=== PATIENT | male | born 1950 | race Caucasian/White ===

== ENCOUNTER → 2023-05-08 09:59 | Outpatient (REF) | payer MEDICARE, OTHER, SELFPAY ==
[2023-05-08 13:21] LABS: HDL Cholesterol 90 mg/dl; LDL Cholesterol, Calculated 93 mg/dl; Total Cholesterol 202 mg/dl (50-199); Triglyceride 95 mg/dl (10-149); Very Low Density Lipoprotein 19 mg/dl (0-30)
== END ==
LOC: REG 09:59
PROVIDERS: ATTENDING PHYSICIAN Family Medicine
DX: E78.2 Mixed hyperlipidemia (principal); R73.01 Impaired fasting glucose
CPT/HCPCS: 36415; 80061; 83036

== ENCOUNTER → 2023-12-15 10:19 | Outpatient (REF) | payer MEDICARE, OTHER, SELFPAY ==
[2023-12-15 11:02] LABS: % Basophils 0.2 % (0-2); % Eosinophils 1.2 % (0-6); % Immature Granulocytes 0.7 % (0-0.5); % Lymphocytes 24.3 % (20.5-51.1); % Monocytes 11.2 % (1.7-9.3); % Neutrophils 62.4 % (42.2-75.2); Absolute Eosinophils 0.1 10^3/uL (0-0.7); Absolute Monocytes 0.5 10^3/uL (0.1-0.6); Absolute Neutrophils 2.6 10^3/uL (1.4-6.5); Hematocrit 35.7 % (39.0-52.0); Hemoglobin 12.5 g/dL (13.0-18.0); Mean Corpuscular Hgb 36.8 pg (27.0-31.0); Nucleated Red Blood Cells % 0 % (-); Platelet Count 233 10^3/uL (130-400); Red Cell Dist. Width 13.2 % (11.5-14.5); White Blood Cell Count 4.1 10^3/uL (4.8-10.8)
[2023-12-15 11:54] LABS: HDL Cholesterol 85 mg/dl; LDL Cholesterol, Calculated 119 mg/dl; Total Cholesterol 225 mg/dl (50-199); Triglyceride 105 mg/dl (10-149); Very Low Density Lipoprotein 21 mg/dl (0-30)
[2023-12-15 12:57] LABS: Folate > 20.0 ng/ml (2.76-20); Vitamin B12 712 pg/ml (239-931)
== END ==
LOC: REG 10:19
PROVIDERS: ATTENDING PHYSICIAN Family Medicine
DX: E53.8 Deficiency of other specified B group vitamins (principal); D64.9 Anemia, unspecified; E78.2 Mixed hyperlipidemia
CPT/HCPCS: 36415; 80061; 82607; 82746; 85025

== ENCOUNTER 2024-06-11 04:07 | Emergency (ER) | payer MEDICARE, OTHER, SELFPAY ==
[2024-06-11 04:07] VITALS: BMI 27.2
[2024-06-11 04:19] VITALS: BP 158/90
[2024-06-11 04:57] VITALS: BP 134/76
[2024-06-11 05:00] VITALS: BP 149/99
[2024-06-11] MEDS: LIDOCAINE URO-JET 2% 1 SYRINGE TOPICAL (05:17)
--- NOTE | 2024-06-11 05:40 | ED.GENMED ---
History of Present Illness
General
Chief Complaint: Male Genito-Urinary Symptoms
Source: patient and spouse
Exam Limitations: none
Time Seen by Provider: 06/11/24 05:15
Nursing documentation reviewed up to this point in time: agreed with
History of Present Illness
History of Present Illness:
This is a 73-year-old gentleman with history of stage IV prostate cancer status post prostatectomy 2017 as well as XRT. Maintained on Lupron as well as other testosterone blocking agents. He has history of radiation cystitis and prior history of
urinary retention but has not required Dong catheter placement. Follows with Dr. Daniel Stanford as well as Arnoldo Brown.
He complains of tremendous urge to urinate and inability to do so since midnight. He has had similar sporadic episodes in the past and occasionally passes some blood clots but then generally urinary retention resolves.
Symptoms occasionally worsened when patient holds his urine and occasionally worsened when he drinks alcohol and he does admit to alcoholic beverage yesterday.
He denies fever nor chills, no diarrhea or constipation, no flank pain. He has not passed any bloody urine or clots recently.
Past History
Past History
ED Past Medical History: Cancer (Prostate cancer)
ED Past Surgical History: Urological (Prostatectomy 2017) and Other ( breast surgery x 2.)
Social History
Tobacco: Non-smoker
Alcohol: Occasional
Personal:
Living: with family
Employment: Retired
Family History
Family History: Other (Noncontributory)
Phy Exam
Physical Exam
Physical Exam:
GENERAL: 73-year-old gentleman appears his stated age, bright alert, pleasant, appears in no acute distress. is accompanying.
EYE: anicteric
NECK: Supple, nontender, no meningismus, no significant adenopathy.
ENT: oral mucosa is moist. No rhinorrhea.
CARDIAC: Regular rate and rhythm. no murmur.
LUNGS: Clear breath sounds bilaterally, no acute respiratory distress, no wheezes/rales/rhonchi
ABDOMEN: Soft, nondistended, moderate tenderness over palpably distended bladder, no r/g, no cvat. normoactive BS.
NEUROLOGICAL: Alert and oriented x3, no focal neuro deficits. Gait is steady.
SKIN: Warm and dry, normal color, skin intact. No rash.
MUSCULOSKELETAL: No C/C/E. peripheral pulses are full and equal b/l. No palpable tenderness.
PSYCH: Normal and appropriate interaction.
Sepsis
Sepsis Screening
Sepsis Assessment: Sepsis Ruled Out
Sepsis Screen
Sepsis Screen: Sepsis Ruled Out
Date: 06/11/24
Time: 06:41
Course
Orders/Labs/Results
Orders:
Orders
06/11/24 05:05
Bladder Scan- Treatment ONCE
06/11/24 05:13
Lidocaine 2% [Lidocaine Uro-Jet 2%] 1 syringe .ROUTE .[facility]
06/11/24 05:15
Dong Placement- Treatment ONCE
Reason for insertion: Acute Retention
06/11/24 05:16
Lidocaine 2% [Lidocaine Uro-Jet 2%] 1 syringe TOPICAL NOW STA
06/11/24 05:34
Urinalysis Reflex To Culture Urgent
Date Specimen was Collected: 06/11/24
Time Specimen was Collected: 05:33
Urine Microscopic Reflex Cult Urgent
Urine Culture Urgent
KATE Source: U
Specimen Description:
Date Specimen was Collected: 06/11/24
Time Specimen was Collected: 05:33
06/11/24 06:29
Doxycycline [Vibramycin] 100 mg PO NOW STA
Abnormal Lab Results
06/11/24
05:34
Ur Occult Blood Reflex 4+ A
(Negative)
Leukocyte Esterase Rfl 2+ A
(Negative)
Urine RBC >100 A /HPF
(0-2)
Urine Albumin (Reflex) 4+ A
(Neg - Trace)
Vital Signs
Initial and Last Documented VS:
Initial Vital Signs
Temp Pulse Resp BP Pulse Ox
98.2 F 84 26 158/90 100
06/11/24 04:19 06/11/24 04:19 06/11/24 04:19 06/11/24 04:19 06/11/24 04:19
Last Documented Vital Signs
Temp Pulse Resp BP Pulse Ox
98.2 F 84 26 149/99 98
06/11/24 04:19 06/11/24 04:19 06/11/24 04:19 06/11/24 05:00 06/11/24 06:00
MDM/Problems Addressed
Differential Diagnosis Includes:
Patient presents with acute urinary retention, palpably distended bladder.
History of prostate cancer, radiation cystitis, previous UTIs.
Will check bladder scan, plan for Dong catheter will check urinalysis.
He is afebrile, no complaints of flank pain, nothing to suggest upper tract UTI and no prior history of kidney stones.
Chronic conditions affecting care: Cancer (Prostate cancer)
*Pulse Oximetry
Patient hypoxic: no
*Critical Care Note
Total Time (30-74mins, 75-104mins- exclusive of procedures): Not Applicable
Update Note
Update Note:
05:30
Bladder scan revealed 650 cc in the bladder.
Dong catheter inserted by nursing staff without difficulty, draining slightly cloudy very dark bloody urine.
Patient has had complete relief of suprapubic discomfort. Resting comfortably.
Urinalysis is pending.
06:30
Dong draining scantly blood-tinged urine. No evidence of clots.
Patient remains comfortable, abdomen is soft without appreciable tenderness.
Urinalysis shows many RBCs, leukocyte esterase positive. Microscopic is a limited due to obscured by RBCs.
As leukocyte Estrace positive concern for UTI thus will treat with 1 week course of doxycycline.
Urine culture is pending.
Will remove Dong catheter. Discussed importance of staying well-hydrated on a daily basis, avoid at regular intervals. Avoid alcoholic beverages.
Prompt follow-up with urology for recheck.
Return precautions discussed.
ED Attending Note
-
Portions of this chart may have been created with voice recognition software.� Occasional wrong word or��sound alike� substitutions may have occurred due to the inherent limitations of voice recognition software.
Discharge Plan
Departure
Patient Disposition: Home (Routine Discharge)
Date of Disposition: 06/11/24
Time of Disposition: 06:35
Patient with high blood pressure during this ER visit?: No
Condition: Good
Discharge Problem:
Acute urinary retention, Acute cystitis with hematuria, Irradiation cystitis with hematuria
Instructions: Blood in the Urine (Hematuria), Adult (DC), Urinary tract infection in adults - ED discharge instructions
Prescriptions:
New
doxycycline monohydrate 100 mg capsule
100 mg PO BID Qty: 14 1RF
Referrals:
Cody Parks DO [Family Provider] -
Daniel Stanford Jr., MD [Active] - Call in 1-3 days for appt
Interventions
Interventions:
*Risk Screen - Suicide Last Done: 06/11/24 04:19
*General Assessment Last Done: 06/11/24 04:58
*Neglect/Abuse Screening Last Done: 06/11/24 04:19
*ED- Fall Risk Assessment Last Done: 06/11/24 04:58
*ED COVID-19 Vaccine History Last Done: 06/11/24 04:58
ED-Male Genitourinary Assessment Last Done: 06/11/24 04:59
Discharge Date and Time
Print Language: UPPER SORBIAN
[2024-06-11 05:58] LABS: Urine Albumin 4+ (Neg - Trace); Urine Bilirubin Negative (Negative); Urine Character Slightly Cloudy (Clear); Urine Color Amber; Urine Glucose Negative (Negative); Urine Ketone Negative (Negative); Urine Leukocyte 2+ (Negative); Urine Nitrite Negative (Negative); Urine Occult Blood 4+ (Negative); Urine Urobilinogen Negative (Neg - 1+)
[2024-06-11 06:15] LABS: Urine Red Blood Cell >100 /HPF (0-2)
[2024-06-11 07:00] VITALS: BP 133/83
[2024-06-11] MEDS: VIBRAMYCIN 100 MG PO (07:06)
== END 2024-06-11 07:13 | disposition home or self-care (01) ==
LOC: EMR 04:07
PROVIDERS: EMERGENCY PHYSICIAN Emergency Medicine; FAMILY PHYSICIAN Family Medicine
DX: R33.9 Retention of urine, unspecified (principal); N30.41 Irradiation cystitis with hematuria; Y84.2 Radiological procedure and radiotherapy as the cause of abnormal reaction of the patient, or of later complication, without mention of misadventure at the time of the procedure; Z85.46 Personal history of malignant neoplasm of prostate; Z86.16 Personal history of COVID-19; Z87.440 Personal history of urinary (tract) infections; Z90.79 Acquired absence of other genital organ(s); Z79.899 Other long term (current) drug therapy; Z91.018 Allergy to other foods
CPT/HCPCS: 99283; 51701; 51798; 81003; 81015; 87086

== ENCOUNTER 2024-06-11 09:26 | Emergency (ER) | payer MEDICARE, OTHER, SELFPAY ==
[2024-06-11 09:27] VITALS: BP 155/96
[2024-06-11 09:35] VITALS: BP 157/99
[2024-06-11 09:38] VITALS: BP 157/99
[2024-06-11 09:42] VITALS: BMI 27.0
--- NOTE | 2024-06-11 09:58 | ED.GENMED ---
History of Present Illness
General
Chief Complaint: Urinary Symptoms
Source: patient and records
Exam Limitations: none
Time Seen by Provider: 06/11/24 09:43
History of Present Illness
History of Present Illness:
73yoM with a history of prostate cancer s/p prostatectomy and radiation in 2017 currently on Lupron and other testosterone blocking agents presenting for evaluation of urinary retention. Patient has a history of radiation cystitis and will have
intermittent issues with urinary retention if he has a small clot that is blocking the urine stream. He typically crease his fluid intake and is able to urinate. He was seen in the ED overnight for urinary retention. A Dong catheter was
initially placed but was removed prior to discharge. He was started on a course of doxycycline for UTI. Patient has been unable to urinate since being discharged so came back to the ED. He denies any fevers, chills, vomiting, flank pain. He does
not take any blood thinners.
Past History
Past History
ED Past Medical History: Cancer (Prostate cancer)
ED Past Surgical History: Urological (Prostatectomy 2017) and Other ( breast surgery x 2.)
Social History
Tobacco: Non-smoker
Alcohol: Occasional
Personal:
Living: with family
Employment: Retired
Family History
Family History: Other (Noncontributory)
Phy Exam
General Physical Exam
General Presentation: well appearing and no apparent distress
General age: appears stated age
General Skin: warm and dry
General Habitus: normal
General Mental: alert
ENT Exam
ENT Exam: normocephalic
Pulmonary Exam
Pulmonary Exam: no respiratory distress
Gastrointestinal Exam
Gastrointestinal Exam: non tender, soft, non distended and other (Patient examined after catheter placement)
Genitourinary Exam Male
Exam Male: other (Dong catheter in place draining light red urine with tiny clots )
Neurological Exam
Neurological Exam: alert
[place] Coma Scale
Eye Opening: Spontaneous
Verbal Response: Oriented
Motor Response: Obeys Commands
GCS Total Score: 15
Skin Exam
Skin Exam: normal color and warm/dry
Psychiatric Exam
Psychiatric Exam: normal mood/affect
Course
Orders/Labs/Results
Orders:
Orders
06/11/24 09:33
Bladder Scan- Treatment ONCE
06/11/24 09:43
Dong Placement- Treatment ONCE
Reason for insertion: Acute Retention
Catheter- Indwelling As Directed
Reason for insertion: Acute Retention
Size: 16 Kiswahili
Discontinue Date/Time: 06/14/24 0600
06/11/24 10:01
Catheter-Hand Irrigation As Directed
Solution:: Sterile 0.9% NaCl
Amount: 50cc
Frequency: ONCE
Reason for hand irrigation: hematuria
Irrigate via:: Catheter directly
If unable to irrigate using port above, may use:: Catheter directly
Vital Signs
Initial and Last Documented VS:
Initial Vital Signs
Temp Pulse Resp BP Pulse Ox
97.6 F 99 17 155/96 99
06/11/24 09:27 06/11/24 09:27 06/11/24 09:27 06/11/24 09:27 06/11/24 09:27
Last Documented Vital Signs
Temp Pulse Resp BP Pulse Ox
98.6 F 64 14 134/84 97
06/11/24 09:38 06/11/24 11:30 06/11/24 11:30 06/11/24 11:00 06/11/24 11:30
MDM/Problems Addressed
Differential Diagnosis Includes:
73yoM here with acute urinary retention. Hx of prostate cancer and radiation cystitis. Seen in ED last night for the same. Had a catheter placed which was removed prior to d/c. Returning again with retention. Bladder scan 550cc on arrival and
nursing staff placed Dong catheter prior to initial exam. Catheter is draining light red urine on initial exam. Catheter was irrigated and urine now appears to be a pink color and catheter is draining well. Will discharge with catheter in place. He
was advised to continue the doxycycline that was prescribed earlier today and f/u with urology for catheter removal. ED return precautions reviewed including fevers. Patient discharged in stable condition.
*Critical Care Note
Total Time (30-74mins, 75-104mins- exclusive of procedures): Not Applicable
ED Attending Note
-
Portions of this chart may have been created with voice recognition software.� Occasional wrong word or��sound alike� substitutions may have occurred due to the inherent limitations of voice recognition software.
Discharge Plan
Departure
Patient Disposition: Home (Routine Discharge)
Date of Disposition: 06/11/24
Time of Disposition: 10:32
Patient with high blood pressure during this ER visit?: Yes
Discharge Problem:
Acute urinary retention, Hematuria
Instructions: How to Care for Your Dong Catheter, Male, Urinary retention - Discharge instructions
Prescriptions:
No Action
doxycycline monohydrate 100 mg capsule
100 mg PO BID Qty: 14 1RF
Referrals:
Cody Parks DO [Family Provider] -
Daniel Stanford Jr., MD [Active] -
Activity Restrictions/Additional Instructions:
Continue taking antibiotics and stay hydrated.
Please follow-up with your urologist for catheter removal. Return to the ER with any worsening symptoms, fevers, or if your catheter stops draining.
Interventions
Interventions:
*Risk Screen - Suicide Last Done: 06/11/24 09:29
*General Assessment Last Done: 06/11/24 09:29
*Neglect/Abuse Screening Last Done: 06/11/24 09:29
*ED- Fall Risk Assessment Last Done: 06/11/24 09:38
*ED COVID-19 Vaccine History Last Done: 06/11/24 09:29
*Nursing Disposition Last Done: 06/11/24 11:53
ED-Male Genitourinary Assessment Last Done: 06/11/24 09:38
Discharge Date and Time
Discharge Date/Time: 06/11/24 11:55
Print Language: KISWAHILI
[2024-06-11 10:00] VITALS: BP 135/99
[2024-06-11 11:00] VITALS: BP 134/84
== END 2024-06-11 11:55 | disposition home or self-care (01) ==
LOC: EMR 09:26
PROVIDERS: EMERGENCY PHYSICIAN Emergency Medicine; FAMILY PHYSICIAN Family Medicine
DX: R33.9 Retention of urine, unspecified (principal); R31.9 Hematuria, unspecified; R03.0 Elevated blood-pressure reading, without diagnosis of hypertension; Z85.46 Personal history of malignant neoplasm of prostate; Z92.3 Personal history of irradiation; Z90.79 Acquired absence of other genital organ(s); Z79.899 Other long term (current) drug therapy; Z91.018 Allergy to other foods
CPT/HCPCS: 99284; 51798; 51702

== ENCOUNTER 2024-06-12 08:46 | Inpatient (IN) | payer MEDICARE, OTHER, SELFPAY ==
[2024-06-12] VITALS (13 sets, daily range): BP systolic 80–147; BP diastolic 48–105; BMI 26.8; BMI 28.3
--- NOTE | 2024-06-12 04:38 | ED.GENMED ---
History of Present Illness
General
Chief Complaint: Catheter/Tube Problem
Source: patient
Time Seen by Provider: 06/12/24 03:40
Nursing documentation reviewed up to this point in time: agreed with
History of Present Illness
History of Present Illness:
Pleasant 73-year-old male presents to the emergency department with a clogged Dong catheter. Patient was here yesterday for urinary retention. He received an indwelling catheter. He reports that tonight it has not been draining appropriately.
Denies fever, chills, nausea or vomiting. Upon arrival to the emergency department he was brought back to a room. There is there that it was determined that he was in retention. Nursing also discovered that at [facility] Dong had been placed
inpatient. This Dong catheter was changed, expelling several clots. Urine is flowing more freely at this point. Patient has been to the emergency department for this in the past. He states that his hematuria self resolved.
Past History
Past History
ED Past Medical History: Cancer (Prostate cancer)
ED Past Surgical History: Urological (Prostatectomy 2017) and Other ( breast surgery x 2.)
Social History
Tobacco: Non-smoker
Alcohol: Occasional
Personal:
Living: with family
Employment: Retired
Family History
Family History: Other (Noncontributory)
Review of Systems
Review of Systems
Allergies reviewed?: Yes
All Other Systems: ROS reviewed and negative except as documented in HPI and ROS
Constitutional: Reports no symptoms
EENT: Reports no symptoms
Respiratory: Reports no symptoms
Cardiac: Reports no symptoms
ABD/GI: Reports no symptoms
: Reports difficulty voiding and bleeding
Musculoskeletal: Reports no symptoms
Skin: Reports no symptoms
Neurological: Reports no symptoms
Endocrine: Reports no symptoms
Hematologic/Lymphatic: Reports no symptoms
Psychiatric: Reports anxiety
Phy Exam
General Physical Exam
General Presentation: well appearing and mild distress
General age: appears stated age
General Skin: warm and dry
General Habitus: normal
General Mental: alert
General Hydration: appears well hydrated
Cardiovascular Exam
Cardiovascular Exam: regular rate/rhythm and no edema
Pulmonary Exam
Pulmonary Exam: lungs clear and no respiratory distress
Gastrointestinal Exam
Gastrointestinal Exam: normal bowel sounds, non tender and soft
Genitourinary Exam Male
Exam Male: other (Indwelling Dong catheter)
Neurological Exam
Neurological Exam: alert and oriented x3
Musculoskeletal Exam
Musculoskeletal Exam: full ROM and neck pain
Skin Exam
Skin Exam: normal color and warm/dry
Psychiatric Exam
Psychiatric Exam: normal mood/affect and anxious
Course
Orders/Labs/Results
Orders:
Orders
06/12/24 03:58
Lidocaine/Epinephrine/Tetracai [Let Topical Anesthetic Gel] 3 ml .ROUTE .[facility] ONE
06/12/24 04:20
Catheter [Dong Placement- Treatment] ONCE
Reason for insertion: Acute Retention
06/12/24 06:03
BMP [Basic Metabolic Panel] Urgent
CBC/With Diff [Complete Blood Count/With Diff] Urgent
PT/INR [Prothrombin Time] Urgent
PTT Urgent
Vital Signs
Initial and Last Documented VS:
Initial Vital Signs
Temp Pulse Resp BP Pulse Ox
98.5 F 70 18 124/85 98
06/12/24 03:33 06/12/24 03:33 06/12/24 03:33 06/12/24 03:33 06/12/24 03:33
Last Documented Vital Signs
Temp Pulse Resp BP Pulse Ox
98.3 F 68 18 147/87 96
06/12/24 04:14 06/12/24 05:30 06/12/24 03:33 06/12/24 05:00 06/12/24 05:30
*Critical Care Note
Total Time (30-74mins, 75-104mins- exclusive of procedures): Not Applicable
Update Note
Update Note:
Spoke with Dr. Stanford, who will come in to put off CBI three-way catheter in. He requests patient be admitted to hospitalist service.
ED Attending Note
-
Portions of this chart may have been created with voice recognition software.� Occasional wrong word or��sound alike� substitutions may have occurred due to the inherent limitations of voice recognition software.
Discharge Plan
Departure
Patient Disposition: Admit
Date of Disposition: 06/12/24
Time of Disposition: 06:07
Presentation/result/management discussed w/ accepting MD/DO: Hospitalist
Condition: Good
Discharge Problem:
Hematuria, Acute on chronic urinary retention
Prescriptions:
No Action
doxycycline monohydrate 100 mg capsule
100 mg PO BID Qty: 14 1RF
Referrals:
UNKNOWN - PT DOES,NOT KNOW [Family Provider] -
Interventions
Interventions:
*Risk Screen - Suicide Last Done: 06/12/24 03:33
*General Assessment Last Done: 06/12/24 03:33
*Neglect/Abuse Screening Last Done: 06/12/24 03:33
*ED- Fall Risk Assessment Last Done: 06/12/24 03:33
*ED COVID-19 Vaccine History Last Done: 06/12/24 03:33
HQ-Bhgmaj-Vxosqzbjuh Assessment Last Done: 06/12/24 04:15
ED-Male Genitourinary Assessment Last Done: 06/12/24 04:15
Discharge Date and Time
Print Language: SPANISH
[2024-06-12 06:35] LABS: % Basophils 0.2 % (0-2); % Immature Granulocytes 0.4 % (0-0.5); % Lymphocytes 14.5 % (20.5-51.1); % Monocytes 7.1 % (1.7-9.3); % Neutrophils 76.8 % (42.2-75.2); Absolute Eosinophils 0.1 10^3/uL (0-0.7); Absolute Lymphocytes 0.7 10^3/uL (1.2-3.4); Absolute Monocytes 0.4 10^3/uL (0.1-0.6); Absolute Neutrophils 3.8 10^3/uL (1.4-6.5); Hematocrit 33.2 % (39.0-52.0); Hemoglobin 11.5 g/dL (13.0-18.0); Mean Corp Hgb Conc. 34.6 g/dL (33.0-37.0); Mean Corpuscular Hgb 35.9 pg (27.0-31.0); Mean Corpuscular Volume 103.8 fL (80.0-94.0); Nucleated Red Blood Cells % 0 % (-); Platelet Count 217 10^3/uL (130-400); Red Cell Dist. Width 13.4 % (11.5-14.5)
--- NOTE | 2024-06-12 06:38 | HPS.HSE ---
Family Physician
-
Family Physician: NOT KNOW UNKNOWN - PT DOES
Chief Complaint
-
Hematuria / Trouble Urinating
History of Present Illness
Patient is a 73y F with PMH significant for prostate cancer s/p prostatectomy and XRT who presents to ED complaining of hematuria and difficulty urinating. Patient states that he initially noted some bloody urine Monday evening. He presented to
the ED early in the AM on Monday. He was evaluated and had a Dong placed at that time. He was treated for suspected UTI and the Dong was removed prior to discharge. Patient returned to the ED several hours later - having been unable to urinate
since his discharge. A Dong was again placed in the ED and patient was discharged to home.
He notes that the urine stopped draining urine and he developed some lower abdominal discomfort.
He returned to the ED this evening again for evaluation.
Patient is noted to have grossly bloody urine with some clots. Dong again exchanged and patient to be started on CBI.
He is not on any ASA, NSAIDs, OAC, etc.
Patient denies any fevers / chills, N/V/D, etc.
Patient states that he did a lot of yard work / exertion on Monday and was not very good about hydration and wonders if this may have triggered his symptoms.
Medical History
Past Medical History
Past Medical History: Reports Other
Additional Past Medical History:
BRCA 2 Positive
Prostate Cancer s/p Surgery, XRT, Hormonal Medications
Breast Cancer s/p Lumpectomy, Chemo
Osteoporosis
Radiation Cystitis
Past Surgical History: Reports Other
Additional Past Surgical History:
Prostatectomy
Left Lumpectomy (x 2)
Social History
Tobacco: Former Smoker (Quit smoking 50 years ago.)
Alcohol: Daily (1-2 drinks daily.)
Drug: None
Family History
Family History: Other (Father: Prostate cancer)
Allergies / Home Medications
Allergies reflects when Allergies were last updated in [employer]
Home Medications with original date entered in [employer]
Allergy/Medication List:
Allergies
Allergy/AdvReac Type Severity Reaction Status Date / Time
shrimp Allergy Hives Verified 06/12/24 03:32
Home Medications
doxycycline monohydrate 100 mg capsule 100 mg PO BID #14 caps 06/11/24
abiraterone 250 mg tablet (Zytiga) 1,000 mg PO DAILY 06/12/24
anastrozole 1 mg tablet 1 mg PO DAILY 06/12/24
calcium 500 mg (as citrate)-vit D3 12.5 mcg (500 unit) chewable tablet 1 tab PO QID 06/12/24
carboxymethylcellulose sodium 1 % eye liquid gel drops 1 drp ophthalmic (eye) TID 06/12/24
denosumab 60 mg/mL subcutaneous syringe (Prolia) 60 mg SC [id number] 06/12/24
leuprolide acetate (6 month) 45 mg intramuscular syringe kit (Lupron Depot) 45 mg IM [id number] 06/12/24
olaparib 150 mg tablet (Lynparza) 300 mg PO BID 06/12/24
prednisone 5 mg tablet 5 mg PO BID 06/12/24
psyllium husk 3.4 gram/5.4 gram oral powder (Metamucil) 1 tbsp PO DAILY 06/12/24
Review of Systems
-
History Source: Patient
A 12 point ROS was completed and negative except as noted: Yes
Constitutional: Denies Fever or Chills
Respiratory: Denies Cough or Trouble Breathing
Cardiac: Denies Chest Pain or Palpitations
Abdomen/GI: Denies Abdominal Pain, Nausea, Vomiting or Diarrhea
: Reports Difficulty Voiding and Bleeding; Denies Dysuria
Musculoskeletal: Denies Joint Pain or Edema
Neurological: Denies Dizzy or Headache
Psych: Denies Depression or Anxiety
Physical Exam
Vital Signs
Vital Signs
Temp Pulse Resp BP Pulse Ox
98.3 F 68 18 147/87 96
06/12/24 04:14 06/12/24 05:30 06/12/24 03:33 06/12/24 05:00 06/12/24 05:30
Physical Exam
General: Other (73y M in no acute distress.)
HEENT: Moist mucous membranes
Respiratory: Clear; No Wheezes, Rales or Rhonchi
Cardiac: S1/S2 and Regular Rhythm; No Murmur
GI: Soft, Non Tender, Non Distended and Normal Bowel Sounds
Genito-urinary: Other (Dong in place draining red urine with occasional clots.)
Musculoskeletal: No Clubbing, No Cyanosis and No Edema
Neuro: AO x 3
Laboratory Results
-
06/12/24 06:17
Impression/Plan
-
A/P: Patient is a 73y M with PMH significant for prostate cancer and radiation cystitis who presents to ED complaining of gross hematuria and difficulty voiding - despite Dong placement.
Gross Hematuria
Acute Urinary Retention secondary to the above
Radiation Cystitis
- Admit for further evaluation and treatment.
- Dong to be exchanged for 3-way and CBI initiated.
- Urology consulted for further evaluation / recommendations.
- Continue with abx for now pending culture data.
- Patient not on any antiplatelets, OAC - but has known h/o radiation cystitis.
- Follow for improvement in hematuria.
- Follow initial labs and subsequent H&H - transfuse if needed.
Breast Cancer
BRCA2 Positivity
- Stable. Continue current hormonal / oral chemo regimen.
- Continue usual prednisone dosing.
Constipation
- Bowel regimen.
DVT Prophylaxis: SCDs
Code Status: Full
[2024-06-12] MEDS: VALIUM INJECTION 2.5 MG IV (06:42)
[2024-06-12 06:48] LABS: Blood Urea Nitrogen 18 mg/dl (9-20); Calcium 9.8 mg/dl (8.4-10.2); Carbon Dioxide 27 mmol/L (22-30); Chloride 104 mmol/L (98-107); Estimated Creatinine Clearance 87 ml/min; Glucose 120 mg/dl (70-99); INR 0.96; Potassium 4.1 mmol/L (3.5-5.1); Sodium 139 mmol/L (135-145); eGFR > 60.00
[2024-06-12 06:49] LABS: APTT 26.4 Sec (23.4-35.0)
--- NOTE | 2024-06-12 08:43 | CON.MD ---
Consultation - Medical
-
see dictated note
pt with hx of prostate ca- s/p robotic prostatectomy/xrt around 2018- now met on androgen ablation
followed at [facility]
says last psa low
has on occ had hematuria
now 3rd ER visit with clot retention
[address] [place]on placed- irrigated with 1 liter of saline- returned moderate amount of old clot- cbi started- clear on moderate drip
plan
continue de leon and cbi
antibx- await ucx
npo after midnight for cysto in OR if needed
begin flomax
--- NOTE | 2024-06-12 09:35 | W.PN.HOSP.TC ---
Today's Communication/Plan
-
CBI.
Follow hemoglobin.
Empiric antibiotics
Assessment / Plan
Assessment / Plan
Impression:
A/P: Patient is a 73y M with PMH significant for prostate cancer and radiation cystitis who presents to ED complaining of gross hematuria and difficulty voiding - despite Dong placement.
Gross hematuria with acute urinary retention
Suspected radiation cystitis
Constipation
Other conditions:
Prostate carcinoma on hormonal therapy.
Breast carcinoma.
BRCA2 positivity
Plan:
Gross Hematuria
Acute Urinary Retention secondary to the above
Radiation Cystitis
Dong catheter in place with CBI initiated.
Patient reports no fever prior to presentation.
Urine culture from 06/11 with no growth.
Continue empiric antibiotics/ceftriaxone.
Urology input appreciated with plan for cystoscopy tentatively on 06/11. Will keep n.p.o. postmidnight.
Patient is not on any antiplatelets, oral anticoagulants prior to presentation. Although has a prior history of radiation cystitis
Follow hemoglobin
Breast Cancer
BRCA2 Positivity
- Stable. Continue current hormonal / oral chemo regimen.
- Continue usual prednisone dosing.
Constipation
- Bowel regimen.
DVT Prophylaxis: SCDs
Code Status: Full
Anticipated Discharge: 24 - 48 hours
Subjective/Interval History
-
Date of Service: June 12, 2024
Objective Data
-
Labs:
Laboratory Results
06/12/24
06:17
WBC 5.0
Hgb 11.5 L
Hct 33.2 L
Plt Count 217
PT 13.0
INR 0.96
APTT 26.4
Sodium 139
Potassium 4.1
Chloride 104
Carbon Dioxide 27
BUN 18
Creatinine 0.9
Glucose 120 H
Calcium 9.8
Vital Signs:
Vital Signs
Temp Pulse Resp BP Pulse Ox
98.3 F 68 18 147/87 96
06/12/24 04:14 06/12/24 05:30 06/12/24 03:33 06/12/24 05:00 06/12/24 05:30
Physical Exam
-
General: Well Developed and No Apparent Distress
HEENT: Normocephalic, Atraumatic and Moist Mucous Membranes
Respiratory: Clear to Auscultation
Cardiac: Regular Rhythm and S1/S2; Negative Murmur, Rub or Gallop
GI: Soft, Nontender, Nondistended and Normal Bowel Sounds; Negative Organomegaly
Rectal: Deferred by Provider
Genito-urinary: Dong
Musculoskeletal: No Clubbing, No Cyanosis and No Edema
Skin: Negative Rash
Neuro: Nonfocal/Grossly Intact
--- NOTE | 2024-06-12 10:05 | CM ---
Met patient , and son in room. Patient admitted with issues related to his de leon catheter. He is very independent, drives. He lives with in 3 level home with 2 steps to enter. Half bath on manager entry. UP 13 steps to full bath and bedroom.
He does not have any DME. No history of VNA or SNF. He hopes to go home and do outpatient follow up.
PLAn for cystoscopy.
Pharmacy: [facility]
PCP Cody Ricci
PLAN: home no needs
[2024-06-12] MEDS: NSS 1000 IV ×2 (10:48→20:29)
[2024-06-12] MEDS: FLOMAX 0.4 MG PO (10:48)
[2024-06-12] MEDS: ROCEPHIN 1000 MG IV (10:48)
[2024-06-12] MEDS: STERILE WATER FOR INJECTION 10 ML IV (10:48)
--- NOTE | 2024-06-12 11:58 | W.PN.UPDATE ---
Update Note
Progress Note Update
pt stable
no clots- urine pink on moderate drip
labs stable/ucx negative
reviewed plan with pt and at bedside
npo after midnight for OR tomorrow
risks, benefits, alternatives reviewed
continue antibx for now
[2024-06-12] MEDS: DELTASONE 5 MG PO ×2 (12:51→19:55)
--- NOTE | 2024-06-12 12:57 | EDRN ---
Lunch provided, prednisone as documented. Urine draining light punch colored.
[2024-06-12] MEDS: NON-FORMULARY ITEM 300 MG PO (13:18)
[2024-06-12] MEDS: REFRESH CELLUVISC GEL OPHTH (17:48)
[2024-06-12] MEDS: NON-FORMULARY ITEM PO (18:24)
[2024-06-12] MEDS: SENOKOT 17.2 MG PO (21:33)
[2024-06-12] MEDS: REFRESH CELLUVISC GEL 1 DROPS OPHTH (21:33)
[2024-06-12] MEDS: NON-FORMULARY ITEM 150 MG PO (23:29)
[2024-06-13] VITALS (10 sets, daily range): BP systolic 104–133; BP diastolic 63–79
--- NOTE | 2024-06-13 03:40 | DOWNTIME ---
There was a [employer] Downtime on 06/13/2024 from 0200 to 06/14/2023 at 0318 . Downtime documentation of patient's care, including medication administrations, has been reconciled in the electronic record per guidelines. Refer to the
patient's paper chart under the miscellaneous tab to see printed paper medication records and downtime forms.
[2024-06-13] MEDS: NON-FORMULARY ITEM 250 MG PO (05:33)
[2024-06-13] MEDS: ARIMIDEX 1 MG PO (05:46)
[2024-06-13] MEDS: NSS 1000 IV ×2 (06:22→16:28)
[2024-06-13 08:50] LABS: Hematocrit 30.3 % (39.0-52.0); Hemoglobin 10.5 g/dL (13.0-18.0); Mean Corp Hgb Conc. 34.7 g/dL (33.0-37.0); Mean Corpuscular Hgb 35.7 pg (27.0-31.0); Mean Corpuscular Volume 103.1 fL (80.0-94.0); Mean Platelet Volume 9.9 fL (7.4-10.4); Platelet Count 197 10^3/uL (130-400); Red Blood Cell Count 2.94 10^6/uL (4.70-6.10); Red Cell Dist. Width 13.3 % (11.5-14.5); White Blood Cell Count 4.4 10^3/uL (4.8-10.8)
[2024-06-13] MEDS: REFRESH CELLUVISC GEL 1 DROPS OPHTH ×3 (08:58→21:37)
[2024-06-13] MEDS: FLOMAX 0.4 MG PO (08:58)
[2024-06-13] MEDS: NON-FORMULARY ITEM PO (08:59)
--- NOTE | 2024-06-13 09:04 | W.PN.URO.CBU ---
Today's Communication / Plan
-
OR
Assessment / Plan
-
gross hematuria
suspected xrt cystitis
for OR today
consent signed after review of risks, benefits, alternatives and disabilities including need for transfusion
Diagnosis
-
Date of Service: June 13, 2024
-
Patient Diagnosis:
hematuria
Subjective
-
pt comfortable
cath hand irrigated for more clot- urine still pink on moderate CBI
hgb down
Objective
-
Vital Signs
Temp Pulse Resp BP Pulse Ox
97.9 F 69 16 133/75 99
06/13/24 07:02 06/13/24 07:02 06/13/24 07:02 06/13/24 07:02 06/13/24 07:02
Intake and Output
06/12/24 06/13/24 06/14/24
06:59 06:59 06:59
Intake Total 1680 / 1680
Output Total 0 / 0
Balance -1970 / -1970
Intake:
Oral fluids 480 / 480
IV fluids (Total) 1200 / 1200
Output:
True Urine Output from CBI 3649 / 3649
Laboratory Results
06/13/24 08:18
Review of Systems
-
Constitutional: Fatigue
Respiratory: No Symptoms
Cardiac: No Symptoms
Abdomen/GI: No Symptoms
Physical Exam
-
General - no acute distress
Abdomen - soft, non-tender
Genitalia - normal- [address]
Skin - warm & dry with no rash
Neuro - AOx3, no motor deficits
Extremities - no clubbing, no cyanosis, no edema
[2024-06-13 10:01] LABS: PSA, Total - Diagnostic 0.08 ng/ml (0.0-4.0)
[2024-06-13] MEDS: ROCEPHIN 1000 MG IV (10:03)
[2024-06-13] MEDS: STERILE WATER FOR INJECTION 10 ML IV (10:04)
[2024-06-13 10:30] LABS: Blood Urea Nitrogen 12 mg/dl (9-20); Calcium 8.2 mg/dl (8.4-10.2); Carbon Dioxide 24 mmol/L (22-30); Chloride 111 mmol/L (98-107); Estimated Creatinine Clearance 98 ml/min; Glucose 105 mg/dl (70-99); Potassium 4.3 mmol/L (3.5-5.1); Sodium 140 mmol/L (135-145); eGFR > 60.00
--- NOTE | 2024-06-13 11:28 | CM ---
CM following re: discharge planning.
Reviewed pt's chart, met with pt.
Per Urologist OR today, continue supportive care.
Pt reports he lives with spouse 2 SH, has supportive family and pt described himself as independent in all areas [employer].
D/C plan: home with anticipated no needs vs VN if indicated.
CM will follow with discharge plan updates as hospitalization progresses.
--- NOTE | 2024-06-13 11:41 | W.PN.HOSP.TC ---
Today's Communication/Plan
-
Remains on CBI
Plan for cystoscopy today.
Monitor hemoglobin.
Urine cultures negative to date.
On empiric ceftriaxone
Assessment / Plan
Assessment / Plan
Impression:
A/P: Patient is a 73y M with PMH significant for prostate cancer and radiation cystitis who presents to ED complaining of gross hematuria and difficulty voiding - despite Dong placement.
Gross hematuria with acute urinary retention
Suspected radiation cystitis
Acute blood loss anemia
Constipation
Other conditions:
Prostate carcinoma on hormonal therapy.
Breast carcinoma.
BRCA2 positivity
Plan:
Gross Hematuria
Acute Urinary Retention secondary to the above
Radiation Cystitis
Dong catheter in place with CBI initiated.
Patient reports no fever prior to presentation.
Urine culture from 06/11 with no growth.
Continue empiric antibiotics/ceftriaxone.
Urology input appreciated with plan for cystoscopy tentatively on 06/11. Will keep n.p.o. postmidnight.
Patient is not on any antiplatelets, oral anticoagulants prior to presentation. Although has a prior history of radiation cystitis
Acute blood loss anemia. Hemoglobin dropped 11.5�10.5. Continue close monitoring.
Breast Cancer
BRCA2 Positivity
- Stable. Continue current hormonal / oral chemo regimen.
- Continue usual prednisone dosing.
Constipation
- Bowel regimen.
DVT Prophylaxis: SCDs
Code Status: Full
Anticipated Discharge: 24 - 48 hours
Subjective/Interval History
-
Date of Service: June 13, 2024
Objective Data
-
Labs:
Laboratory Results
06/13/24
08:18
WBC 4.4 L
Hgb 10.5 L
Hct 30.3 L
Plt Count 197
Sodium 140
Potassium 4.3
Chloride 111 H
Carbon Dioxide 24
BUN 12
Creatinine 0.8
Glucose 105 H
Calcium 8.2 L D
Vital Signs:
Vital Signs
Temp Pulse Resp BP Pulse Ox
97.9 F 69 16 133/75 99
06/13/24 07:02 06/13/24 07:02 06/13/24 07:02 06/13/24 07:02 06/13/24 07:02
I&O
06/12/24 06/13/24 06/14/24
06:59 06:59 06:59
Intake Total 1680 / 1680
Output Total 3650 / 3650
Balance -1969 / -1969
Physical Exam
-
General: Well Developed and No Apparent Distress
HEENT: Normocephalic, Atraumatic and Moist Mucous Membranes
Respiratory: Clear to Auscultation
Cardiac: Regular Rhythm and S1/S2; Negative Murmur, Rub or Gallop
GI: Soft, Nontender, Nondistended and Normal Bowel Sounds; Negative Organomegaly
Rectal: Deferred by Provider
Genito-urinary: Dong
Musculoskeletal: No Clubbing, No Cyanosis and No Edema
Skin: Negative Rash
Neuro: Nonfocal/Grossly Intact
[2024-06-13] MEDS: DELTASONE PO (13:20)
--- NOTE | 2024-06-13 15:17 | W.IMMPOSTOP ---
Surgical Immed Post Op Note
-
Primary Surgeon:
randy
Assisting Surgeon:
Pre-op Diagnosis:
xrt cystitis/clot retention
Post-op Diagnosis:
same
Procedure Performed:
cysto/clot evac/fulguration
Anesthesia Type:
gen
Specimen / Cultures:
none
Estimated Blood Loss:
10cc
Complications:
none
Operative Findings:
mild anastamotic narrowing
clot evacuated
xrt cystitis of trigone and bladder neck- tissue very friable
tissue fulgurated- cath replaced- irrigated clear at end of procedure
to pacu in stable condition
continue CBI today
[2024-06-13] MEDS: METAMUCIL, KONSYL 0.5 PACKET PO (16:27)
--- NOTE | 2024-06-13 16:40 | PTCARENOTE ---
Patient returned to his room from PACU post cystoscopy with evacuation of clots and fulguration.The patient denies any pain.Continuous bladder irrigation is infusing and the urine is totally clear.The patient is alert and oriented.Vital signs are
stable.The patient is in his bed with the call villalpando in reach.
[2024-06-13] MEDS: NON-FORMULARY ITEM 150 MG PO (17:43)
[2024-06-13] MEDS: DELTASONE 5 MG PO (17:43)
[2024-06-13] MEDS: TYLENOL 650 MG PO (17:53)
[2024-06-13] MEDS: SENOKOT 17.2 MG PO (21:37)
[2024-06-14] MEDS: ARIMIDEX 1 MG PO (06:05)
[2024-06-14] MEDS: NON-FORMULARY ITEM 1000 MG PO (06:05)
--- NOTE | 2024-06-14 08:02 | W.PN.UPDATE ---
Update Note
Progress Note Update
pt stable overnight
urine clear on cbi
de leon removed
check labs
ambulated/TOV
will check later this afternoon
[2024-06-14 08:10] LABS: Hematocrit 28.9 % (39.0-52.0); Hemoglobin 10.2 g/dL (13.0-18.0); Mean Corp Hgb Conc. 35.3 g/dL (33.0-37.0); Mean Corpuscular Volume 102.1 fL (80.0-94.0); Mean Platelet Volume 10.2 fL (7.4-10.4); Platelet Count 210 10^3/uL (130-400); Red Blood Cell Count 2.83 10^6/uL (4.70-6.10); Red Cell Dist. Width 12.8 % (11.5-14.5); White Blood Cell Count 6.7 10^3/uL (4.8-10.8)
[2024-06-14 08:15] VITALS: BP 110/72
[2024-06-14] MEDS: REFRESH CELLUVISC GEL 1 DROPS OPHTH ×2 (08:58→15:45)
[2024-06-14] MEDS: METAMUCIL, KONSYL 0.5 PACKET PO (08:58)
[2024-06-14] MEDS: FLOMAX 0.4 MG PO (08:58)
[2024-06-14] MEDS: NON-FORMULARY ITEM 150 MG PO (09:04)
[2024-06-14] MEDS: STERILE WATER FOR INJECTION 10 ML IV (09:55)
[2024-06-14] MEDS: ROCEPHIN 1000 MG IV (09:55)
[2024-06-14 12:07] VITALS: BP 174/86
[2024-06-14] MEDS: DELTASONE 5 MG PO (12:35)
[2024-06-14] MEDS: Pyridium 200 MG PO (15:45)
[2024-06-14 15:50] VITALS: BP 92/68
--- NOTE | 2024-06-14 16:22 | W.PN.URO.CBU ---
Today's Communication / Plan
-
home
Assessment / Plan
-
gross hematuria
xrt cystitis
s/p fulguration/clot evac
de leon and voiding clear urine
reviewed with med team
ok for discharge
call monday with update and f/u plan
Diagnosis
-
Date of Service: June 14, 2024
-
Post Op Day:
cysto/clot evac and fulguration 06/13
Patient Diagnosis:
hematuria
xrt cystitis
Subjective
-
pt doing well
de leon out
urine clear
pvr 0
Objective
-
Vital Signs
Temp Pulse Resp BP Pulse Ox
98.8 F 74 18 92/68 96
06/14/24 15:50 06/14/24 15:50 06/14/24 15:50 06/14/24 15:50 06/14/24 15:50
Intake and Output
06/13/24 06/14/24 06/15/24
06:59 06:59 06:59
Intake Total 1680 / 1680 2080 / 2080
Output Total 3650 / 3650 -350 / 650 1000 / 1000
Balance -1970 / -1970 2430 / 1430 -1000 / -1000
Intake:
Oral fluids 480 / 480 480 / 480
IV fluids (Total) 1200 / 1200 1600 / 1600
normosol 50 / 50
Output:
True Urine Output from CBI 3650 / 3650 -350 / 650 1000 / 1000
Laboratory Results
06/14/24 07:43
06/13/24 08:18
Physical Exam
-
General - no acute distress
Abdomen - soft, non-tender
Genitalia - normal
--- NOTE | 2024-06-14 16:24 | W.DS.TRANS ---
DC Summary - Speech Language Pathology Assistant
-
Discharge Instructions:
Discharge Diagnosis/Procedures you have radiation cystitis with hematuria- you
had a cystoscopy with fulguration of bleeding
Diet No restrictions
Additional Diets drink plenty of fluids
Activity Other activity
Additional Activity no lifting over 15lbs for 2 weeks- nothing
involving a saddle for 4 weeks
Driving Restrictions As prior to admission
Bathing Restrictions OK to Shower
Instructions:
Stand-Alone Forms:
Changes to Home Medications: No
Discharge Medications:
DC Medications w/original date entered in [facility]
doxycycline monohydrate 100 mg capsule 100 mg PO BID #14 caps 06/11/24
abiraterone 250 mg tablet (Zytiga) 1,000 mg PO DAILY 06/12/24
anastrozole 1 mg tablet 1 mg PO DAILY 06/12/24
calcium 500 mg (as citrate)-vit D3 12.5 mcg (500 unit) chewable tablet 1 tab PO BID 06/12/24
carboxymethylcellulose sodium 1 % eye liquid gel drops 1 drp BOTH EYES TID 06/12/24
denosumab 60 mg/mL subcutaneous syringe (Prolia) 60 mg SC [id number] 06/12/24
ibuprofen-diphenhydramine citrate 200 mg-38 mg tablet (Advil PM) 1 cap PO HSPRN PRN sleep 06/12/24
leuprolide acetate (6 month) 45 mg intramuscular syringe kit (Lupron Depot) 45 mg IM [id number] 06/12/24
olaparib 150 mg tablet (Lynparza) 300 mg PO BID 06/12/24
prednisone 5 mg tablet 5 mg PO BID 06/12/24
psyllium 1 packet PO DAILY 06/12/24
Home Medication Changes
Pending Results: No
== END 2024-06-14 17:25 | disposition home or self-care (01) | DRG 663 ==
LOC: 2 SOUTH 08:46
PROVIDERS: ADMITTING PHYSICIAN Hospitalist; ATTENDING PHYSICIAN Internal Medicine; CONSULT PHYSICIAN Specialist; EMERGENCY PHYSICIAN Student in an Organized Health Care Education/Training Program; FAMILY PHYSICIAN Family Medicine
PROC: 0TCB8ZZ Extirpation of Matter from Bladder, Via Natural or Artificial Opening Endoscopic (ICD-10-PCS; 2024-06-13)
PROC: 0W3R8ZZ Control Bleeding in Genitourinary Tract, Via Natural or Artificial Opening Endoscopic (ICD-10-PCS; 2024-06-13)
DX: N30.41 Irradiation cystitis with hematuria (principal); D62 Acute posthemorrhagic anemia; M81.0 Age-related osteoporosis without current pathological fracture; R33.8 Other retention of urine; C61 Malignant neoplasm of prostate; K59.00 Constipation, unspecified; Y84.2 Radiological procedure and radiotherapy as the cause of abnormal reaction of the patient, or of later complication, without mention of misadventure at the time of the procedure; Z85.3 Personal history of malignant neoplasm of breast; Z92.21 Personal history of antineoplastic chemotherapy; Z87.891 Personal history of nicotine dependence; Z90.79 Acquired absence of other genital organ(s); Z79.899 Other long term (current) drug therapy; Z79.890 Hormone replacement therapy; Z79.52 Long term (current) use of systemic steroids
CPT/HCPCS: 51701; 51702; 51798; 80048; 81003; 81015; 84153; 85025; 85027; 85610; 85730; 86850; 86900; 86901; 87086; 93005; 99283; 99284

== ENCOUNTER 2024-07-27 07:37 | Emergency (ER) | payer MEDICARE, OTHER, SELFPAY ==
[2024-07-27 07:40] VITALS: BP 159/92
[2024-07-27 08:08] LABS: % Basophils 0.2 % (0-2); % Eosinophils 1.1 % (0-6); % Immature Granulocytes 0.4 % (0-0.5); % Lymphocytes 13.7 % (20.5-51.1); % Neutrophils 76.6 % (42.2-75.2); Absolute Eosinophils 0.1 10^3/uL (0-0.7); Absolute Lymphocytes 0.7 10^3/uL (1.2-3.4); Absolute Monocytes 0.4 10^3/uL (0.1-0.6); Absolute Neutrophils 3.6 10^3/uL (1.4-6.5); Hematocrit 35.6 % (39.0-52.0); Hemoglobin 12.3 g/dL (13.0-18.0); Mean Corp Hgb Conc. 34.6 g/dL (33.0-37.0); Mean Corpuscular Hgb 35.8 pg (27.0-31.0); Mean Corpuscular Volume 103.5 fL (80.0-94.0); Mean Platelet Volume 10.4 fL (7.4-10.4); Nucleated Red Blood Cells % 0 % (-); Platelet Count 203 10^3/uL (130-400); Red Blood Cell Count 3.44 10^6/uL (4.70-6.10); Red Cell Dist. Width 13.2 % (11.5-14.5); White Blood Cell Count 4.8 10^3/uL (4.8-10.8)
[2024-07-27 08:13] LABS: Urine Albumin 1+ (Neg - Trace); Urine Bilirubin Negative (Negative); Urine Character Clear (Clear); Urine Color Yellow; Urine Glucose Negative (Negative); Urine Ketone Negative (Negative); Urine Leukocyte 1+ (Negative); Urine Nitrite Negative (Negative); Urine Occult Blood 4+ (Negative); Urine Specific Gravity 1.015 (<1.030); Urine Urobilinogen Negative (Neg - 1+)
[2024-07-27 08:24] LABS: Urine Bacteria Few (Negative); Urine Red Blood Cell 21-25 /HPF (0-2); Urine Squamous Cell 0-2 /LPF (Few)
[2024-07-27 08:34] LABS: ALT (SGPT) 22 U/L (0-50); AST (SGOT) 29 U/L (17-59); Albumin 4.3 g/dl (3.5-5.0); Alkaline Phosphatase 56 U/L (38-126); Blood Urea Nitrogen 25 mg/dl (9-20); Calcium 9.8 mg/dl (8.4-10.2); Carbon Dioxide 25 mmol/L (22-30); Chloride 108 mmol/L (98-107); Glucose 139 mg/dl (70-99); Potassium 4.9 mmol/L (3.5-5.1); Sodium 140 mmol/L (135-145); Total Bilirubin 0.7 mg/dl (0.2-1.3); eGFR > 60.00
--- NOTE | 2024-07-27 09:21 | ED.GENMED ---
History of Present Illness
General
Chief Complaint: Abdominal Pain
Time Seen by Provider: 07/27/24 08:55
History of Present Illness
History of Present Illness:
Patient is a 73-year-old male with past medical history of prior tobacco use, GERD, history of breast cancer, osteoporosis, and history of prostate cancer status post prostatectomy and history of radiation cystitis in 2018, here today for evaluation
of lower abdominal pain primarily along the midline that began at approximately 3:30 AM this morning. Pain has been improving overall. No fevers. No vomiting. No diarrhea. No URI symptoms. No upper abdominal pain. He does report chronic lower
urinary tract symptoms secondary to his prior surgery/radiation which includes frequent urination/urinary urgency, discomfort upon urination, and intermittent gross hematuria. He does currently follow with urology and recently had a procedure 1
month ago.
Past History
Past History
ED Past Medical History: Cancer (Prostate cancer)
ED Past Surgical History: Urological (Prostatectomy 2017) and Other ( breast surgery x 2.)
Social History
Tobacco: Non-smoker
Alcohol: Occasional
Personal:
Living: with family
Employment: Retired
Family History
Family History: Other (Noncontributory)
Review of Systems
Review of Systems
All Other Systems: ROS reviewed and negative except as documented in HPI and ROS
Phy Exam
Physical Exam
Physical Exam:
GENERAL: Alert , in no apparent distress
EYE: pupils equal and reactive
NECK: Supple, no significant adenopathy.
ENT: o/p clr, mmm.
CARDIAC: Regular rate and rhythm .
LUNGS: Clear breath sounds bilaterally, no acute respiratory distress, no wheezes/rales/rhonchi
ABDOMEN: Soft, mild tenderness to palpation along the lower abdomen including along the midline and right lower/left lower quadrant. No rebound or guarding.
GENITOURINARY: Normal genitalia. No lesions. No discharge. No testicular tenderness. No masses.
NEUROLOGICAL: Alert and oriented, no focal neuro deficits
SKIN: Warm and dry, skin intact.
MUSCULOSKELETAL: No edema, well perfused.
PSYCH: Normal and appropriate interaction.
Course
Orders/Labs/Results
Orders:
Orders
07/27/24 07:55
CMP [Comprehensive Metabolic Panel] Urgent
Complete Blood Count/With Diff Urgent
Urinalysis Reflex To Culture Urgent
Date Specimen was Collected: 07/27/24
Time Specimen was Collected: 07:47
Urine Microscopic Reflex Cult Urgent
Urine Culture Urgent
KATE Source: U
Specimen Description:
Date Specimen was Collected: 07/27/24
Time Specimen was Collected: 07:47
07/27/24 09:43
CT Abd/pelvis W Iv Cont Urgent
Comment:
Reason For Exam: lower abd pain
Abnormal Lab Results
07/27/24
07:55
RBC 3.44 L 10^6/uL
(4.70-6.10)
Hgb 12.3 L g/dL
(13.0-18.0)
Hct 35.6 L %
(39.0-52.0)
MCV 103.5 H fL
(80.0-94.0)
MCH 35.8 H pg
(27.0-31.0)
Absolute Lymphs (auto) 0.7 L 10^3/uL
(1.2-3.4)
Neutrophils % 76.6 H %
(42.2-75.2)
Lymphocytes % 13.7 L %
(20.5-51.1)
Chloride 108 H mmol/L
(98-107)
BUN 25 H mg/dl
(9-20)
Glucose 139 H mg/dl
(70-99)
Ur Occult Blood Reflex 4+ A
(Negative)
Leukocyte Esterase Rfl 1+ A
(Negative)
Urine RBC 21-25 A /HPF
(0-2)
Urine Bacteria (Reflex) Few A
(Negative)
Urine Albumin (Reflex) 1+ A
(Neg - Trace)
07/27/24 07:55
07/27/24 07:55
Vital Signs
Initial and Last Documented VS:
Initial Vital Signs
Temp Pulse Resp BP Pulse Ox
97.7 F 89 16 159/92 99
07/27/24 07:40 07/27/24 07:40 07/27/24 07:40 07/27/24 07:40 07/27/24 07:40
Last Documented Vital Signs
Temp Pulse Resp BP Pulse Ox
97.7 F 85 13 153/89 97
07/27/24 09:29 07/27/24 12:15 07/27/24 12:15 07/27/24 12:00 07/27/24 12:15
MDM/Problems Addressed
Differential Diagnosis Includes:
Patient is a 73-year-old male with past medical history of prior tobacco use, GERD, history of breast cancer, osteoporosis, and history of prostate cancer status post prostatectomy and history of radiation cystitis in 2018, here today for evaluation
of lower abdominal pain primarily along the midline that began at approximately 3:30 AM this morning. Overall, patient appears well. Vitals remarkable for an elevated blood pressure. Physical examination described above. A workup was initiated
in triage which reveals mild anemia with a hemoglobin of 12.3 which is actually increased compared to prior. There is macrocytosis. There is mild elevation in BUN to 25 with a normal creatinine of 1.1. Glucose 139. Chloride 108. Urinalysis with
4+ blood with negative nitrates. There is 1+ leukocyte esterase. There is 21-25 RBCs. 3-5 WBCs. 0-2 squamous epithelium. Few bacteria. We will obtain a postvoid residual to assess for urinary retention.
07/27/2024 12:40: Postvoid residual greater than 450. A CAT scan of the abdomen pelvis with IV contrast was obtained which reveals no acute findings. Case was discussed with urology, Dr. Wilde, who evaluated patient at bedside. A Dong
catheter was placed. Patient will be discharged at this time with recommendations to follow-up with urology for trial void and removal in 1 week. Patient notes improvement in symptoms overall. Recommend supportive measures and close follow-up.
All questions answered. Stable for discharge.
*Critical Care Note
Total Time (30-74mins, 75-104mins- exclusive of procedures): Not Applicable
ED Attending Note
-
Portions of this chart may have been created with voice recognition software.� Occasional wrong word or��sound alike� substitutions may have occurred due to the inherent limitations of voice recognition software.
Discharge Plan
Departure
Patient Disposition: Home (Routine Discharge)
Date of Disposition: 07/27/24
Time of Disposition: 12:37
Patient with high blood pressure during this ER visit?: Yes
Condition: Fair
Covid-19: Not Applicable
Discharge Problem:
Hematuria, Acute on chronic urinary retention, Radiation cystitis, History of prostate cancer
Instructions: How to Care for Your Dong Catheter, Male
Prescriptions:
No Action
doxycycline monohydrate 100 mg capsule
100 mg PO BID Qty: 14 1RF
anastrozole 1 mg Tablet
1 mg PO DAILY
prednisone 5 mg Tablet
5 mg PO BID
carboxymethylcellulose sodium 1 % Drops, Liquid Gel
1 drp BOTH EYES TID
Prolia 60 mg/mL Syringe
60 mg SC [id number]
abiraterone [Zytiga] 250 mg Tablet
1,000 mg PO DAILY
Lupron Depot (6 Month) 45 mg Syringe Kit
45 mg IM [id number]
Lynparza 150 mg Tablet
300 mg PO BID
calcium citrate-vitamin D3 500 mg-12.5 mcg (500 unit) Tablet,Chewable
1 tab PO BID
psyllium Packet
1 packet PO DAILY
Advil PM 200-38 mg Tablet
1 cap PO HSPRN PRN (Reason: sleep)
Referrals:
Rosas Wilde MD [Active, Urology] - Follow up in 5-7 days
Referral Note: UROLOGY
Cody Parks DO [Family Provider, Family Practice] - Follow up in 5-7 days
Activity Restrictions/Additional Instructions:
A Dong catheter was placed. Keep this in place and follow-up with your urologist in 1 week for trial void and removal.
Return for any new, worsening, or concerning symptoms.
Interventions
Interventions:
*Risk Screen - Suicide Last Done: 07/27/24 07:40
*General Assessment Last Done: 07/27/24 09:29
*Neglect/Abuse Screening Last Done: 07/27/24 07:40
*ED COVID-19 Vaccine History Last Done: 07/27/24 09:29
YT-Akwkia-Knanirljyc Assessment Last Done: 07/27/24 10:52
Discharge Date and Time
Print Language: KINYARWANDA
[2024-07-27 09:25] VITALS: BP 117/81
[2024-07-27 09:28] VITALS: BMI 29.0
[2024-07-27 11:27] VITALS: BP 152/90
--- NOTE | 2024-07-27 11:56 | W.PN.URO.CBU ---
Today's Communication / Plan
-
call office for de leon evaluation and cic
Assessment / Plan
-
1000cc clear yellow urine cat scan no bladder clots i placed 18 fr coudedrained
Diagnosis
-
Date of Service: July 27, 2024
-
Patient Diagnosis:acute urinary retention probale bladder neck contracture in pt s/p xrt for acp nom hematuria
Post Op Day:
Subjective
-
abd bloating
Objective
-
Vital Signs
Temp Pulse Resp BP Pulse Ox
97.7 F 78 16 117/81 99
07/27/24 09:29 07/27/24 09:25 07/27/24 07:40 07/27/24 09:25 07/27/24 07:40
Laboratory Results
07/27/24 07:55
07/27/24 07:55
Review of Systems
-
: Difficulty Voiding
Physical Exam
-
General - well developed, well nourished, no acute distress
Chest - clear bilaterally
Abdomen - soft, non-tender, positive bowel sounds, no CVAT, no incisional pain or distention
Genitalia - normal
Rectal - normal
Skin - warm & dry with no rash
Neuro - AOx3, no motor deficits
Extremities - no clubbing, no cyanosis, no edema
Incision - clean, dry
Dressing - clean, dry, intact
Care Review
Data Reviewed
Discussed with: Nursing and Other (radiology)
CT Scan: Image Pers Reviewed
[2024-07-27 12:00] VITALS: BP 153/89
== END 2024-07-27 13:08 | disposition home or self-care (01) ==
LOC: EMR 07:37
PROVIDERS: EMERGENCY PHYSICIAN Emergency Medicine; FAMILY PHYSICIAN Family Medicine; OTHER PHYSICIAN Specialist
DX: R10.30 Lower abdominal pain, unspecified (principal); R33.8 Other retention of urine; N30.41 Irradiation cystitis with hematuria; R03.0 Elevated blood-pressure reading, without diagnosis of hypertension; M81.0 Age-related osteoporosis without current pathological fracture; K21.9 Gastro-esophageal reflux disease without esophagitis; D64.9 Anemia, unspecified; C79.51 Secondary malignant neoplasm of bone; Z90.79 Acquired absence of other genital organ(s); Z85.46 Personal history of malignant neoplasm of prostate; Z85.3 Personal history of malignant neoplasm of breast; Z87.891 Personal history of nicotine dependence; Z91.013 Allergy to seafood
CPT/HCPCS: 99285; 51798; 51702; 74177; 80053; 81003; 81015; 85025; 87086; Q9967

== ENCOUNTER 2024-08-05 20:29 | Emergency (ER) | payer MEDICARE, OTHER, SELFPAY ==
[2024-08-05 20:31] VITALS: BP 162/97
[2024-08-05 21:25] VITALS: BP 149/85
--- NOTE | 2024-08-05 21:41 | ED.GENMED ---
History of Present Illness
General
Chief Complaint: Male Genito-Urinary Symptoms
Source: patient and records
Exam Limitations: none
Time Seen by Provider: 08/05/24 21:19
History of Present Illness
History of Present Illness:
73yoM with a history of prostate cancer and radiation cystitis currently undergoing hyperbaric oxygen therapy presenting for a Dong catheter issue. Patient was seen in the ED on 07/27/2024 for urinary retention and a Dong catheter was placed. He
followed up with his urologist, Dr. Stanford, 4 days ago and had a voiding trial. Patient failed the voiding trial and catheter was reinserted. He is scheduled for another voiding trial in 2 to 3 days. Patient started to experience suprapubic
pressure this afternoon and his catheter stopped draining. Nursing staff in triage attempted to flush the catheter but the catheter was completely blocked so it was removed. Patient reports urinating clear yellow urine just prior to initial
evaluation and now his suprapubic pressure has resolved.
Past History
Past History
ED Past Medical History: Cancer (Prostate cancer)
ED Past Surgical History: Urological (Prostatectomy 2017) and Other ( breast surgery x 2.)
Social History
Tobacco: Non-smoker
Alcohol: Occasional
Personal:
Living: with family
Employment: Retired
Family History
Family History: Other (Noncontributory)
Phy Exam
General Physical Exam
General Presentation: well appearing and no apparent distress
General Skin: warm and dry
General Habitus: normal
ENT Exam
ENT Exam: normocephalic
Pulmonary Exam
Pulmonary Exam: no respiratory distress
Gastrointestinal Exam
Gastrointestinal Exam: non tender, soft and non distended
Neurological Exam
Neurological Exam: alert
Arnold Coma Scale
Eye Opening: Spontaneous
Verbal Response: Oriented
Motor Response: Obeys Commands
GCS Total Score: 15
Skin Exam
Skin Exam: normal color and warm/dry
Psychiatric Exam
Psychiatric Exam: normal mood/affect
Course
Orders/Labs/Results
Orders:
Orders
08/05/24 20:43
Lidocaine 2% [Lidocaine Uro-Jet 2%] 1 syringe .ROUTE .STK-MED ONE
08/05/24 21:40
Bladder Scan- Treatment ONCE
Vital Signs
Initial and Last Documented VS:
Initial Vital Signs
Temp Pulse Resp BP Pulse Ox
98.1 F 75 18 162/97 100
08/05/24 20:31 08/05/24 20:31 08/05/24 20:31 08/05/24 20:31 08/05/24 20:31
Last Documented Vital Signs
Temp Pulse Resp BP Pulse Ox
98.1 F 75 18 131/83 98
08/05/24 20:31 08/05/24 20:31 08/05/24 21:28 08/05/24 22:00 08/05/24 22:00
MDM/Problems Addressed
Differential Diagnosis Includes:
73yoM here for a blocked Dong catheter. Catheter stopped draining this evening and he developed suprapubic pressure. He is due for a voiding trial later this week. Nursing staff attempted to flush catheter prior to my exam without success. Catheter
was blocked so Dong was removed. Since catheter removal, patient was able to void spontaneously and states his urine was clear and yellow. Postvoid residual 22cc and abdomen is soft, non-tender. He was apparently told in the past that only urology
can insert his catheter as he has a history of a difficult Dong insertions. At this point, there is no indication for catheter reinsertion. He was advised to f/u with his urologist and return to the ED with any issues.
*Pulse Oximetry
Patient hypoxic: no (98%)
*Critical Care Note
Total Time (30-74mins, 75-104mins- exclusive of procedures): Not Applicable
ED Attending Note
-
Portions of this chart may have been created with voice recognition software.� Occasional wrong word or��sound alike� substitutions may have occurred due to the inherent limitations of voice recognition software.
Discharge Plan
Departure
Patient Disposition: Home (Routine Discharge)
Date of Disposition: 08/05/24
Time of Disposition: 22:11
Patient with high blood pressure during this ER visit?: Yes
Discharge Problem:
Complication, blocked Dong catheter
Instructions: Urinary Retention (DC)
Prescriptions:
No Action
doxycycline monohydrate 100 mg capsule
100 mg PO BID Qty: 14 1RF
anastrozole 1 mg Tablet
1 mg PO DAILY
prednisone 5 mg Tablet
5 mg PO BID
carboxymethylcellulose sodium 1 % Drops, Liquid Gel
1 drp BOTH EYES TID
Prolia 60 mg/mL Syringe
60 mg SC [id number]
abiraterone [Zytiga] 250 mg Tablet
1,000 mg PO DAILY
Lupron Depot (6 Month) 45 mg Syringe Kit
45 mg IM [id number]
Lynparza 150 mg Tablet
300 mg PO BID
calcium citrate-vitamin D3 500 mg-12.5 mcg (500 unit) Tablet,Chewable
1 tab PO BID
psyllium Packet
1 packet PO DAILY
Advil PM 200-38 mg Tablet
1 cap PO HSPRN PRN (Reason: sleep)
tamsulosin [Flomax] 0.4 mg capsule
0.4 mg PO HS PRN (Reason: trouble urinating) Qty: 30 0RF
Referrals:
Cody Parks DO [Family Provider, Family Practice]
Activity Restrictions/Additional Instructions:
Please follow-up with your urologist tomorrow. Return to the ER with any worsening symptoms or inability to urinate.
Interventions
Interventions:
*Risk Screen - Suicide Last Done: 08/05/24 20:31
*General Assessment Last Done: 08/05/24 20:31
*Neglect/Abuse Screening Last Done: 08/05/24 20:31
*ED- Fall Risk Assessment Last Done: 08/05/24 21:14
*ED COVID-19 Vaccine History Last Done: 08/05/24 21:14
*Nursing Disposition Last Done: 08/05/24 22:14
ED-Male Genitourinary Assessment Last Done: 08/05/24 21:14
Discharge Date and Time
Discharge Date/Time: 08/05/24 22:20
Print Language: ITALIAN
[2024-08-05 22:00] VITALS: BP 131/83
== END 2024-08-05 22:20 | disposition home or self-care (01) ==
LOC: EMR 20:29
PROVIDERS: EMERGENCY PHYSICIAN Emergency Medicine; FAMILY PHYSICIAN Family Medicine
DX: T83.091A Other mechanical complication of indwelling urethral catheter, initial encounter (principal); X58.XXXA Exposure to other specified factors, initial encounter; Z85.46 Personal history of malignant neoplasm of prostate; Z90.79 Acquired absence of other genital organ(s)
CPT/HCPCS: 99283

== ENCOUNTER → 2024-10-25 13:47 | Outpatient (REF) | payer MEDICARE, OTHER, SELFPAY | LOC: HWRCS 13:47 | PROVIDERS: ATTENDING PHYSICIAN Family Medicine | DX: R01.1 Cardiac murmur, unspecified (principal) | CPT/HCPCS: 93306 ==

== ENCOUNTER → 2024-10-31 14:51 | Outpatient (REF) | payer MEDICARE, OTHER, SELFPAY | LOC: EMG 14:51 | PROVIDERS: ATTENDING PHYSICIAN Family Medicine | DX: R20.0 Anesthesia of skin (principal); M54.16 Radiculopathy, lumbar region | CPT/HCPCS: 95886; 95910 ==

== ENCOUNTER → 2025-01-03 16:00 | Outpatient (REF) | payer MEDICARE, OTHER, SELFPAY | LOC: PAVMRI 16:00 | PROVIDERS: ATTENDING PHYSICIAN Anesthesiology Pain Medicine; FAMILY PHYSICIAN Family Medicine | DX: C79.9 Secondary malignant neoplasm of unspecified site (principal); M54.12 Radiculopathy, cervical region; M54.14 Radiculopathy, thoracic region | CPT/HCPCS: 72141; 72146 ==

== ENCOUNTER 2025-01-17 07:02 | Outpatient (RCR) | payer MEDICARE, OTHER, SELFPAY | END 2025-01-17 23:59 | disposition home or self-care (01) | LOC: RPT 07:02 | PROVIDERS: ATTENDING PHYSICIAN Family Medicine | DX: M62.89 Other specified disorders of muscle (principal); N30.40 Irradiation cystitis without hematuria; M62.81 Muscle weakness (generalized); G90.09 Other idiopathic peripheral autonomic neuropathy; Z73.6 Limitation of activities due to disability; C61 Malignant neoplasm of prostate; Z92.3 Personal history of irradiation | CPT/HCPCS: 97110; 97112; 97140; 97163; 97530 ==

== ENCOUNTER 2025-02-07 09:16 | Outpatient (RCR) | payer MEDICARE, OTHER, SELFPAY | END 2025-02-07 23:59 | disposition home or self-care (01) | LOC: RPT 09:16 | PROVIDERS: ATTENDING PHYSICIAN Family Medicine | DX: M62.89 Other specified disorders of muscle (principal); N30.40 Irradiation cystitis without hematuria; M62.81 Muscle weakness (generalized); G90.09 Other idiopathic peripheral autonomic neuropathy; Z73.6 Limitation of activities due to disability; C61 Malignant neoplasm of prostate; Z92.3 Personal history of irradiation | CPT/HCPCS: 97110; 97112; 97140; 97530 ==